=== PATIENT | female | born 1995 | race Caucasian/White ===

== ENCOUNTER 2017-04-03 09:44 | Outpatient (CLI) | payer OTHER ==
[2015-04-22 11:50] VITALS: BP 145/78
[2017-04-03 10:11] LABS: BASOPHILS % 0.5 (0.0-1.5); EOSINOPHILS % 5.1 % (0.0-6.8); MEAN CORPUSCULAR HEMOGLOBIN 29.6 pg (28.0-34.0); MEAN CORPUSCULAR VOLUME 84.4 fl (80.0-100.0); NEUTROPHILS # 5.6 # k/uL (1.4-7.7)
== END 2017-04-03 09:45 ==
LOC: LAB 09:44
PROVIDERS: ATTEND Physician Assistant
DX: R59.9 Enlarged lymph nodes, unspecified (principal); R53.83 Other fatigue
CPT/HCPCS: 36415; 85025; 86308

== ENCOUNTER 2017-06-18 12:34 | Outpatient (CLI) | payer OTHER ==
[2015-04-22 11:50] VITALS: BP 145/78
== END 2017-06-18 12:35 ==
LOC: LABRHC 12:34
PROVIDERS: ATTEND Family Medicine
DX: R30.0 Dysuria (principal)
CPT/HCPCS: 87086; 87186

== ENCOUNTER 2017-10-30 14:40 | Outpatient (CLI) | payer OTHER ==
[2015-04-22 11:50] VITALS: BP 145/78
== END 2017-10-30 14:42 ==
LOC: LABRHC 14:40
PROVIDERS: ATTEND Physician Assistant
DX: N89.8 Other specified noninflammatory disorders of vagina (principal); R30.0 Dysuria
CPT/HCPCS: 87086; 87480; 87491; 87510; 87591; 87798

== ENCOUNTER 2018-01-22 12:00 | Outpatient (CLI) | payer OTHER ==
[2015-04-22 11:50] VITALS: BP 145/78
== END 2018-01-22 12:02 ==
LOC: LABRHC 12:00
PROVIDERS: ATTEND Family Medicine
DX: R30.0 Dysuria (principal)
CPT/HCPCS: 87086